=== PATIENT | female | born 1955 | race Caucasian/White ===

== ENCOUNTER 2017-02-18 20:35 | Emergency (ER) | payer OTHER ==
[2017-02-18 21:24] VITALS: RESP 16
[2017-02-18] MEDS ORDERED: HYDROcodone/APAP 5-325MG 1 EACH TAB PO STA (21:36)
--- NOTE | 2017-02-18 21:41 | ED ---
Fall HPI - General Chief Complaint: Fall Stated Complaint: fall on sidewalk Chin and both hands injured Time Seen by Provider: 02/18/17 21:26 Source: patient, RN notes reviewed Mode of arrival: ambulatory Limitations: no limitations - History of Present Illness Initial Comments: 62-year-old female presents emergency Department with chief complaint of trip and fall. She states she tripped over a sidewalk all forward. Patient primarily complains of right hand pain, bruising to her right hand. She states she also has mild left hand pain. Patient denies any headache, dizziness, blurred vision, loss conscious. She states she did abrasions her chin in her cheek. She states she has full range of motion of her jaw with no discomfort. She felt that she may have chipped a tooth but cannot identify tooth. Patient denies any lower extremity injuries. Patient states that she feels fine otherwise having pain. - Related Data Home Medications Medication Instructions Recorded Confirmed No Known Home Medications [No 02/18/17 02/18/17 Known Home Medications] Previous Rx's Medication Instructions Recorded Hydrocodone/Acetaminophen [[place] 1 tab PO Q6HR PRN #15 tab 02/18/17 5-325] Allergies Allergy/AdvReac Type Severity Reaction Status Date / Time perfume Allergy Swelling Verified 02/18/17 21:24 Review of Systems ROS Statement: Those systems with pertinent positive or pertinent negative responses have been documented in the HPI. ROS Other: All systems not noted in ROS Statement are negative. Past Medical History Additional Past Medical History / Comment(s): TMJ History of Any Multi-Drug Resistant Organisms: None Reported Past Surgical History: Cholecystectomy, Tonsillectomy Additional Past Surgical History / Comment(s): cyst removed left wrist Past Psychological History: No Psychological Hx Reported Smoking Status: Former smoker Past Alcohol Use History: Occasional Past Drug Use History: None Reported General Exam Limitations: no limitations General appearance: alert, in no apparent distress Head exam: Present: atraumatic, normocephalic, normal inspection Eye exam: Present: normal appearance, PERRL, EOMI. Absent: scleral icterus, conjunctival injection, periorbital swelling ENT exam: Present: normal exam, normal oropharynx (No dental fractures noted), mucous membranes moist, TM's normal bilaterally, normal external ear exam, other (Minimal tenderness the right maxillary region superficial abrasion noted to the right cheek, chin region patient has some ecchymosis noted to the chin though patient has full range of motion) Neck exam: Present: normal inspection, full ROM. Absent: tenderness, meningismus, lymphadenopathy Respiratory exam: Present: normal lung sounds bilaterally. Absent: respiratory distress, wheezes, rales, rhonchi, stridor Cardiovascular Exam: Present: regular rate, normal rhythm, normal heart sounds. Absent: systolic murmur, diastolic murmur, rubs, gallop, clicks Extremities exam: Present: other (There is moderate ecchymosis, swelling noted to the fourth and fifth digit of the right hand severe times with palpation there is an old deformity noted to the right wrist patient is nontender the wrist. Patient has mild tenderness over the left hand fifth digit radial pulses equal bilaterally Refill less than 2 seconds bilaterally) Back exam: Present: full ROM. Absent: tenderness Neurological exam: Present: alert, oriented X3, CN II-XII intact, reflexes normal. Absent: motor sensory deficit Skin exam: Present: warm, dry, intact, normal color. Absent: rash Course Vital Signs 02/18/17 21:19 Temperature 98.2 F Pulse Rate 81 Respiratory 16 Rate Blood Pressure 159/89 O2 Sat by Pulse 98 Oximetry Procedures - Orthopedic Splinting/Casting Injury #1 Side: right Upper Extremity Injury Location: hand, finger Upper Extremity Immobilizer: ulnar gutter (Short arm neurovascular intact before and after procedure) Medical Decision Making - Medical Decision Making 62-year-old female presented emergency department for fall. Patient has 2 finger fractures noted of the fourth and fifth digit on the right hand. This was splinted. She'll follow-up with orthopedics. Patient's has a facial duration contusion no fractures. Patient no evidence of manic head injury. Patient we discharged this time return parameters were discussed. Disposition Clinical Impression: Fall, Facial contusion, Facial abrasion, Multiple fractures of fingers, Hand contusion Disposition: HOME SELF-CARE Condition: Stable Instructions: Finger Fracture (ED) Additional Instructions: Please return to the Emergency Department if symptoms worsen or any other concerns. Prescriptions: Hydrocodone/Acetaminophen [[place] 5-325] 1 tab PO Q6HR PRN #15 tab PRN Reason: Pain Referrals: Flor Urbina MD [Primary Care Provider] - 1-2 days Magdaleno Gonzalez DO [Doctor of Osteopathic Medicine] - 1-2 days Time of Disposition: 22:15
--- NOTE | 2017-02-18 21:57 | XR ---
EXAMINATION TYPE: XR hand complete bilateral DATE OF EXAM: 02/18/2017 9:46 PM COMPARISON: NONE HISTORY: Fall with left hand pain. Left fifth digit pain TECHNIQUE: 3 radiographic views of the left hand were obtained. FINDINGS: There is no evidence of fracture or dislocation. Mild degenerative changes are appreciated of the distal interphalangeal joints demonstrated as sclerosis and joint space narrowing. Similar jeffery nges are mildly appreciated at the first metacarpophalangeal joint. IMPRESSION: No evidence of fracture or dislocation. Very mild degenerative changes.
--- NOTE | 2017-02-18 21:58 | XR ---
EXAMINATION TYPE: XR facial bones complete DATE OF EXAM: 02/18/2017 9:46 PM COMPARISON: NONE HISTORY: Injury during facial pain. TECHNIQUE: 3 radiographic views of the facial bones were obtained. FINDINGS: 3 mandibular screws are seen bilaterally from prior fixation. Additional dental filling wit h through canal is noted on the left within the mandibular molar. No evidence of fracture or dislocat ion is identified. Nasal septum appears intact. Orbits are also intact. Paranasal sinuses and mastoid air cells are well aerated. Mild degenerative changes are appreciated the visualized cervical spine. IMPRESSION: No evidence of fracture or dislocation. Prior postsurgical changes.
[2017-02-18 22:32] VITALS: BP 147/75; PULSE 69; TEMP 97.8
== END 2017-02-18 22:54 | disposition home or self-care (01) ==
LOC: EC 20:35
DX: S62.614A Displaced fracture of proximal phalanx of right ring finger, initial encounter for closed fracture (principal); S62.616A Displaced fracture of proximal phalanx of right little finger, initial encounter for closed fracture; S00.83XA Contusion of other part of head, initial encounter; Z87.891 Personal history of nicotine dependence; Z91.09 Other allergy status, other than to drugs and biological substances; W01.0XXA Fall on same level from slipping, tripping and stumbling without subsequent striking against object, initial encounter; Y92.89 Other specified places as the place of occurrence of the external cause
CPT/HCPCS: 29125; 70150; 99284

== ENCOUNTER → 2017-06-14 | Outpatient (CLI) | payer OTHER ==
--- NOTE | 2017-06-17 07:20 | MM ---
Reason for exam: screening (asymptomatic). Last mammogram was performed 1 year and 8 months ago. History: Patient is postmenopausal and had first child after 31. Family history of breast cancer in sister at age 44 and breast cancer in mother at age 50. Took hormonal contraceptives for 30 years. Physical Findings: A clinical breast exam by your physician is recommended on an annual basis and results should be correlated with mammographic findings. MG 3D Screening Mammo W/Cad Bilateral CC and MLO view(s) were taken. Prior study comparison: October 14, 2015, bilateral MG 3d diag mammo w/cad [facility]. March 05, 2014, left breast MG work up mamm w CAD LT. The breast tissue is heterogeneously dense. This may lower the sensitivity of mammography. There is no discrete abnormality. No significant changes when compared with prior studies. ASSESSMENT: Negative, BI-RAD 1 RECOMMENDATION: Routine screening mammogram of both breasts in 1 year.
== END | disposition home or self-care (01) ==
LOC: RADMAMWWP 07:59
PROVIDERS: ATTEND Obstetrics & Gynecology
DX: Z12.31 Encounter for screening mammogram for malignant neoplasm of breast (principal); Z80.3 Family history of malignant neoplasm of breast
CPT/HCPCS: 77063; G0202

== ENCOUNTER → 2018-06-27 | Outpatient (CLI) | payer OTHER ==
--- NOTE | 2018-06-30 11:24 | MM ---
Reason for exam: screening (asymptomatic). Last mammogram was performed 1 year ago. History: Patient is postmenopausal and had first child after 31. Family history of breast cancer in sister at age 44 and breast cancer in mother at age 50. Took hormonal contraceptives for 30 years. Physical Findings: A clinical breast exam by your physician is recommended on an annual basis and results should be correlated with mammographic findings. MG 3D Screening Mammo W/Cad Bilateral CC and MLO view(s) were taken. Technologist: RT Bladimir (R)(M) Prior study comparison: June 14, 2017, bilateral MG 3d screening mammo w/cad. October 14, 2015, bilateral MG 3d diag mammo w/cad [facility]. The breast tissue is heterogeneously dense. This may lower the sensitivity of mammography. Finding: There are typically benign calcifications in both breasts. No significant changes in finding since June 14, 2017 and October 14, 2015. ASSESSMENT: Benign, BI-RAD 2 RECOMMENDATION: Routine screening mammogram of both breasts in 1 year.
== END ==
LOC: RADMAMWWP 07:36
PROVIDERS: ATTEND Obstetrics & Gynecology
DX: Z12.31 Encounter for screening mammogram for malignant neoplasm of breast (principal); Z80.3 Family history of malignant neoplasm of breast
CPT/HCPCS: 77063; 77067

== ENCOUNTER → 2021-07-14 | Outpatient (CLI) | payer MEDICARE, OTHER ==
--- NOTE | 2021-07-18 11:11 | MM ---
Reason for exam: screening (asymptomatic). Last mammogram was performed 3 years and 1 month ago. History: Patient is postmenopausal and had first child after 31. Family history of breast cancer in sister at age 44 and breast cancer in mother at age 50. Took hormonal contraceptives for 30 years. Physical Findings: A clinical breast exam by your physician is recommended on an annual basis and results should be correlated with mammographic findings. MG 3D Screening Mammo W/Cad Bilateral CC and MLO view(s) were taken. Prior study comparison: June 27, 2018, bilateral MG 3d screening mammo w/cad. June 14, 2017, bilateral MG 3d screening mammo w/cad. The breast tissue is heterogeneously dense. This may lower the sensitivity of mammography. No significant changes when compared with prior studies. ASSESSMENT: Benign, BI-RAD 2 RECOMMENDATION: Routine screening mammogram of both breasts in 1 year.
== END | disposition home or self-care (01) ==
LOC: RADMAMWWP 07:55
PROVIDERS: ATTEND Internal Medicine
DX: Z12.31 Encounter for screening mammogram for malignant neoplasm of breast (principal); Z80.3 Family history of malignant neoplasm of breast
CPT/HCPCS: 77063; 77067

== ENCOUNTER → 2021-09-12 | Outpatient (CLI) | payer OTHER ==
--- NOTE | 2021-09-13 16:24 | BD ---
EXAMINATION TYPE: Axial Bone Density DATE OF EXAM: 09/12/2021 COMPARISON: NONE CLINICAL HISTORY: Height: 5 FT 2 IN Weight: 123 FRAX RISK QUESTIONS: Alcohol (3 or more units per day): NO Family History (Parent hip fracture): NO Glucocorticoids (More than 3mos): NO (Ex: prednisone, prednisolone, methylprednisolone, dexamethasone, and hydrocortisone). History of Fracture in Adulthood: YES Secondary Osteoporosis: 1. Type 1 Diabetes: NO 2. Hyperthyroidism: NO 3. Menopause before 45: YES 4. Malnutrition: NO 5. Chronic liver disease: NO Rheumatoid Arthritis: NO Current Tobacco Use: NO RISK FACTORS HISTORY OF: History of Wrist Fracture: RT WRIST When: 2012 Surgery to Spine/Hip(right/left)/Wrist (right/left): NO Family History of Osteoporosis: NO Active: YES Diet low in dairy products/other sources of calcium: NO Postmenopausal woman: YES Take estrogen and/or progesterone medications: NO Lost more than 2 inches in height since high school: NO Frequent falls: NO Poor Health: GOOD Hyperparathyroidism: NO Adrenal Insufficiency: NO MEDICATIONS: Additional Medications: SINGULAIR Additional History: EXAM MEASUREMENTS: Bone mineral densitometry was performed using the Velti System. Bone mineral density as measured about the Lumbar spine is: ----- L1-L4(G/cm2): 1.048 T Score Values are as follows: ----- L2: -1.1 ----- L3: -0.8 ----- L4: -1.2 ----- L1-L4: -1.1 Bone mineral density has: DECREASED -17.5 % SINCE STUDY OF 2003 Bone mineral density about the R hip (g/cm2): 0.768 Bone mineral density about the L hip (g/cm2): 0.760 T Score values are as follows: -----R Neck: -1.9 -----L Neck: -2.0 -----R Total: -1.8 -----L Total: -1.9 Bone mineral density has: DECREASED -18.3 % SINCE STUDY 2003 IMPRESSION: Osteopenia (T Score between -2.5 and -1). There is slightly increased risk of fracture and the patient may be considered for treatment. Re-Screen 2-5 years. NOTE: T-SCORE=SD OF THE YOUNG ADULT MEAN.
== END | disposition home or self-care (01) ==
LOC: RADBDWWP 15:59
PROVIDERS: ATTEND Internal Medicine
DX: M85.89 Other specified disorders of bone density and structure, multiple sites (principal)
CPT/HCPCS: 77080

== ENCOUNTER → 2022-07-23 | Outpatient (CLI) | payer MEDICARE ==
--- NOTE | 2022-07-24 18:46 | MM ---
Reason for Exam: Screening (asymptomatic). Last screening mammogram was performed 12 month(s) ago. Patient History: Menarche at age 12. Postmenopausal. Patient used Hormonal Contraceptives for 30 years. Sister had breast cancer, age 44. Mother had breast cancer, age 50. Risk Values: Judy 5 year model risk: 8.7%. NCI Lifetime model risk: 27.8%. Prior Study Comparison: 06/14/2017 Bilateral Screening Mammogram, [facility]. 06/27/2018 Bilateral Screening Mammogram, [facility]. 07/14/2021 Bilateral Screening Mammogram, [facility]. Tissue Density: The breast tissue is heterogeneously dense. This may lower the sensitivity of mammography. Findings: Analyzed By CAD. Focal asymmetry central outer left breast is more defined from prior exams. This may represent superimposition shadow but further evaluation is recommended. The patient also has a concern about skin wrinkling around the lateral aspect of the left areola. Patient does not feel any lump. Further evaluation is recommended. Overall Assessment: Incomplete: need additional imaging evaluation, BI-RAD 0 Management: Special View Mammogram of the left breast. Diagnostic Breast Ultrasound of the left breast. 1. Additional views including spot 3-D CC, 3-D CC rolled medial, spot 3-D MLO, and 3-D ML views. 2. Whole left breast ultrasound. 3. Clinical inspection of the patient's area of concern, wrinkling along the left lateral periareolar region. [facility] will attempt to contact patient to return for supplemental views and ultrasound if indicated. Electronically signed and approved by: Juan Michael M.D. Radiologist
== END | disposition home or self-care (01) ==
LOC: RADMAMWWP 15:15
PROVIDERS: ATTEND Internal Medicine
DX: Z12.31 Encounter for screening mammogram for malignant neoplasm of breast (principal); Z78.0 Asymptomatic menopausal state; Z80.3 Family history of malignant neoplasm of breast
CPT/HCPCS: 77063; 77067

== ENCOUNTER → 2022-07-27 | Outpatient (CLI) | payer MEDICARE ==
--- NOTE | 2022-07-27 08:27 | MM ---
Reason for Exam: Additional evaluation requested from abnormal screening. Last screening mammogram was performed less than 1 month ago. Patient History: Menarche at age 12. Postmenopausal. Patient used Hormonal Contraceptives for 30 years. Sister had breast cancer, age 44. Mother had breast cancer, age 50. Risk Values: Judy 5 year model risk: 8.7%. NCI Lifetime model risk: 27.8%. Prior Study Comparison: 03/05/2014 Left Diagnostic Mammogram, [facility]. 10/14/2015 Bilateral Diagnostic Mammogram, [facility]. 06/14/2017 Bilateral Screening Mammogram, [facility]. 06/27/2018 Bilateral Screening Mammogram, [facility]. 07/14/2021 Bilateral Screening Mammogram, [facility]. 07/23/2022 Bilateral MG 3D screening mammo w/cad, [facility]. Tissue Density: Left: The breast tissue is heterogeneously dense. This may lower the sensitivity of mammography. Findings: Analyzed By CAD. Area on prior mammogram within the left breast middle depth slightly lateral compresses out, no masses distortions or calcifications. Overall Assessment: Negative, BI-RAD 1 Management: Screening Mammogram of both breasts in 1 year. A clinical breast exam by your physician is recommended on an annual basis and results should be correlated with mammographic findings. This exam should not preclude additional follow-up of suspicious palpable abnormalities. Results were given to the patient verbally at the time of exam. Electronically signed and approved by: Clarence Nelson DO
== END | disposition home or self-care (01) ==
LOC: RADMAMWWP 07:30
PROVIDERS: ATTEND Internal Medicine
DX: R92.8 Other abnormal and inconclusive findings on diagnostic imaging of breast (principal); Z78.0 Asymptomatic menopausal state; Z80.3 Family history of malignant neoplasm of breast
CPT/HCPCS: 77065; G0279; 77061

== ENCOUNTER → 2022-08-02 | Outpatient (CLI) | payer MEDICARE ==
--- NOTE | 2022-08-02 11:08 | XR ---
Left knee HISTORY: Trauma and pain 3 views the left knee Bone mineralization, joint spaces and alignment are maintained. Suprapatellar increased density may b e indicative of small joint effusion. IMPRESSION: No fracture or dislocation. Joint effusion, knee MRI may be of benefit.
== END | disposition home or self-care (01) ==
LOC: RADXRMAIN 09:20
PROVIDERS: ATTEND Internal Medicine
DX: S89.92XA Unspecified injury of left lower leg, initial encounter (principal); M25.462 Effusion, left knee

== ENCOUNTER → 2022-09-05 | Outpatient (CLI) | payer MEDICARE ==
--- NOTE | 2022-09-05 16:19 | MR ---
EXAMINATION TYPE: MR knee LT wo con DATE OF EXAM: 09/05/2022 COMPARISON: Left knee x-ray August 02, 2022 HISTORY: Sprain L knee with outer pain and locking for 6 to 8 weeks. TECHNIQUE: Multiplanar, multisequence images of the knee is performed without IV contrast. FINDINGS: MEDIAL MENISCUS: Some increased signal posterior horn does not definitively extend to articular surfa ce. LATERAL MENISCUS: Anterior and posterior horns are intact without tear. CRUCIATE LIGAMENTS: The anterior and posterior cruciate ligaments are intact and unremarkable. COLLATERAL LIGAMENTS: The medial collateral ligament and lateral collateral ligament complex are inta ct and unremarkable. EXTENSOR MECHANISM: Visualized quadriceps and patellar tendons are intact. EFFUSION: No significant suprapatellar joint effusion. POPLITEAL CYST: Small size popliteal/spear cyst. TRICOMPARTMENT SPACES: Mild to moderate tricompartment joint space loss. No significant spurring. CARTILAGE: Tricompartmental articular cartilage is preserved. BONE MARROW SIGNAL: There is a fairly large area of heterogeneous increased T2 signal in the lateral tibial plateau extending to the tibial condyles measuring approximately 3.5 cm transversely by 4.5 cm craniocaudal dimension. This is greatest near the lateral articulating surface. No bony destruction or serpiginous diminished T1 signal. This extends the length of bone AP diameter on sagittal images. OTHER: No additional significant abnormality is appreciated. IMPRESSION: 1. Significant focal osseous contusion and/or microfracture injury involving the lateral tibial plate au as detailed above. 2. Intrasubstance tear posterior horn medial meniscus thought present. No full-thickness meniscal tea r. 3. Mild to moderate tricompartment degenerative changes as detailed above. 4. Small sized popliteal cyst.
== END | disposition home or self-care (01) ==
LOC: RADMRIMAIN 08:01
PROVIDERS: ATTEND Internal Medicine
DX: M17.12 Unilateral primary osteoarthritis, left knee (principal); M71.21 Synovial cyst of popliteal space [Baker], right knee

== ENCOUNTER → 2023-06-06 | Outpatient (CLI) | payer MEDICARE ==
--- NOTE | 2023-06-06 13:30 | XR ---
EXAM TYPE: LUMBAR SPINE X RAY SERIES COMPARISON: NONE HISTORY: Pain TECHNIQUE: 3 views are submitted. FINDINGS: Alignment is anatomic. The pedicles are intact. The transverse processes are intact. There is no spondylolisthesis. Surgical clips in the right upper quadrant. There is mild to moderate hypertrophi c and degenerative changes of the spine most marked at L5-S1. There is facet arthropathy. Mild superi or endplate compression fracture of indeterminate age but likely chronic. IMPRESSION: 1. Mild diffuse osteopenia with multilevel [id number] degenerative disc disease and facet arthr opathy most marked at L5-S1 with suspected foraminal encroachment. 2. Age indeterminate mild superior endplate compression fracture T12, likely chronic. Correlate clini marge.
== END | disposition home or self-care (01) ==
LOC: RADXRMAIN 13:12
PROVIDERS: ATTEND Internal Medicine
DX: M51.36 Other intervertebral disc degeneration, lumbar region (principal); M47.816 Spondylosis without myelopathy or radiculopathy, lumbar region
CPT/HCPCS: 72100

== ENCOUNTER → 2023-06-13 | Outpatient (CLI) | payer MEDICARE ==
[2023-06-13 15:39] LABS: African American GFR (CKD) >90 (>60 ml/min/1.73 sqM); Blood Urea Nitrogen 20 mg/dL (7-17); Non-African American GFR(CKD) 80 (>60 ml/min/1.73 sqM)
--- NOTE | 2023-06-14 08:08 | CT ---
EXAMINATION TYPE: CT abdomen pelvis w con CT DLP: 403 mGycm, Automated exposure control for dose reduction was used. DATE OF EXAM: 06/13/2023 4:45 PM COMPARISON: None CLINICAL INDICATION:Female, 68 years old with history of M47.816 OTH DISRD OF BONE DENSITY AND STRM7 9.671; Stomach pain and weight loss greater than 10 pounds in the last 5 months. TECHNIQUE: Axial CT of the abdomen and pelvis. Sagittal and coronal reformats were created on a Puddle workstation. Contrast used:100cc mL of Isovue 300 with IV Contrast, (none if empty) Oral contrast used: with Oral Contrast (none if empty) FINDINGS: LOWER CHEST: Unremarkable ABDOMEN LIVER: Left hepatic lobe 40 mm simple cyst. GALLBLADDER AND BILE DUCTS: The gallbladder is surgically absent. PANCREAS: Unremarkable. SPLEEN: Unremarkable. ADRENAL GLANDS: Indeterminate right adrenal nodule measuring 14 mm. Left adrenal glands are unremarka ble. KIDNEYS AND URETERS: No evidence of hydronephrosis or renal calculus. The ureters are unremarkable. PELVIS BLADDER: Unremarkable REPRODUCTIVE: Large left pelvic sidewall mass which could be an ovarian cyst measuring 8.4 x 5.1 cm ABDOMEN & PELVIS STOMACH AND BOWEL: No evidence of bowel obstruction. PERITONEUM/RETROPERITONEUM: No evidence of pneumoperitoneum or free fluid. VASCULATURE: No evidence of aortic aneurysm. MUSCULOSKELETAL: No acute osseous abnormalities LYMPH NODES: No gross evidence for lymphadenopathy. SOFT TISSUE/ABDOMINAL WALL: Unremarkable IMPRESSION: 1. No evidence for acute abdominal process. 2. There is a left pelvic sidewall lesion simple fluid density probably representing an ovarian cyst s measuring up to 8.4 x 5.1 cm. Further evaluation pelvic ultrasound is recommended. 3. Indeterminate right adrenal nodule measuring 14 mm. Consider adrenal mass protocol for further ev aluation. 4. No evidence for lymphadenopathy.
== END | disposition home or self-care (01) ==
LOC: RADCTMAIN 14:43
PROVIDERS: ATTEND Internal Medicine
DX: M47.816 Spondylosis without myelopathy or radiculopathy, lumbar region (principal); M85.851 Other specified disorders of bone density and structure, right thigh; D35.01 Benign neoplasm of right adrenal gland; K76.89 Other specified diseases of liver; M79.671 Pain in right foot; R63.4 Abnormal weight loss; R10.9 Unspecified abdominal pain
CPT/HCPCS: 82565; 84520; 74177; 36415; Q9967

== ENCOUNTER → 2023-06-19 | Outpatient (CLI) | payer MEDICARE ==
--- NOTE | 2023-06-19 16:51 | US ---
EXAMINATION TYPE: US pelvic complete DATE OF EXAM: 06/19/2023 COMPARISON: NONE CLINICAL INDICATION: Female, 68 years old with history of N83.209 UNSPECIFIED OVARIAN CYST, UNSPECIFI ED SIDE; Lt ovarian cyst [address] TECHNIQUE: Transabdominal (TA). Transabdominal sonographic images of the pelvis were acquired. Date of LMP: post pita 10 yrs EXAM MEASUREMENTS: Uterus: 6.6x3.0x3.8cm Endometrial Stripe: 4.0cm Right Ovary: 2.6x2.1x1.8cm Left Ovary: 2.5x1.3x0.6 1. Uterus: Anteverted wnl 2. Endometrium: wnl 3. Right Ovary: wnl 4. Left Ovary: cystic area extending from ovary measures 7.8x4.8x5.8cm, slightly smaller than on CT 5. Bilateral Adnexa: wnl 6. Posterior cul-de-sac: wnl IMPRESSION: 1. Large cyst left ovary.
== END | disposition home or self-care (01) ==
LOC: RADUSWWP 12:16
PROVIDERS: ATTEND Internal Medicine
DX: N83.202 Unspecified ovarian cyst, left side (principal)
CPT/HCPCS: 76856

== ENCOUNTER → 2023-08-01 | Outpatient (CLI) | payer MEDICARE ==
--- NOTE | 2023-08-01 11:34 | MM ---
Reason for Exam: Screening (asymptomatic). Last screening mammogram was performed 12 month(s) ago. Patient History: Menarche at age 12. Patient has no children. Postmenopausal. Patient used Hormonal Contraceptives for 30 years. Sister had breast cancer, age 44. Mother had breast cancer, age 50. Risk Values: Judy 5 year model risk: 6.4%. NCI Lifetime model risk: 20.4%. Prior Study Comparison: 10/14/2015 Bilateral Diagnostic Mammogram, [facility]. 06/14/2017 Bilateral Screening Mammogram, [facility]. 06/27/2018 Bilateral Screening Mammogram, [facility]. 07/14/2021 Bilateral Screening Mammogram, [facility]. 07/23/2022 Bilateral MG 3D screening mammo w/cad, [facility]. 07/27/2022 Left MG 3D work up w/cad , [facility]. Tissue Density: The breast tissue is heterogeneously dense. This may lower the sensitivity of mammography. Findings: Analyzed By CAD. Focal asymmetry right breast 3.4 cm nipple and MLO view superior aspect measuring 6 mm Left breast No evidence for suspicious mass, constipation or distortion. Focal asymmetry right breast 3.4 cm nipple anterior depth on MLO view superior aspect measuring 6 mm . Left breast No evidence for suspicious mass, constipation or distortion. Overall Assessment: Incomplete: need additional imaging evaluation, BI-RAD 0 Management: Diagnostic Mammogram of the right breast. [facility] will attempt to contact patient to return for supplemental views and ultrasound if indicated. Patient should continue monthly self-breast exams. A clinical breast exam by your physician is recommended on an annual basis. This exam should not preclude additional follow-up of suspicious palpable abnormalities. Note on Judy scores and lifetime risk: 1. A Judy score greater than 3% is considered moderate risk. If this is the case, consider specialist referral to assess eligibility for a risk reducing agent. 2. If overall lifetime risk for the development of breast cancer is 20% or higher, the patient may qualify for future screening with alternating mammogram and breast MRI. Electronically signed and approved by: Clarence Nelson DO
== END | disposition home or self-care (01) ==
LOC: RADMAMWWP 10:09
PROVIDERS: ATTEND Internal Medicine
DX: Z12.31 Encounter for screening mammogram for malignant neoplasm of breast (principal); Z78.0 Asymptomatic menopausal state; Z80.3 Family history of malignant neoplasm of breast
CPT/HCPCS: 77063; 77067

== ENCOUNTER → 2023-08-07 | Outpatient (CLI) | payer MEDICARE ==
--- NOTE | 2023-08-07 14:10 | MM ---
Reason for Exam: Additional evaluation requested from abnormal screening. Last screening mammogram was performed less than 1 month ago. Patient History: Menarche at age 12. Patient has no children. Postmenopausal. Patient used Hormonal Contraceptives for 30 years. Sister had breast cancer, age 44. Mother had breast cancer, age 50. Risk Values: Judy 5 year model risk: 6.4%. NCI Lifetime model risk: 20.4%. Prior Study Comparison: 08/24/2011 Bilateral Screening Mammogram, [facility]. 02/19/2014 Bilateral Screening Mammogram, [facility]. 03/05/2014 Left Diagnostic Mammogram, [facility]. 10/14/2015 Bilateral Diagnostic Mammogram, [facility]. 06/14/2017 Bilateral Screening Mammogram, [facility]. 06/27/2018 Bilateral Screening Mammogram, [facility]. 07/14/2021 Bilateral Screening Mammogram, [facility]. 07/23/2022 Bilateral MG 3D screening mammo w/cad, [facility]. 07/27/2022 Left MG 3D work up w/cad , [facility]. 08/01/2023 Bilateral MG 3D screening mammo w/cad, [facility]. Tissue Density: Right: The breast tissue is heterogeneously dense. This may lower the sensitivity of mammography. Findings: Analyzed By CAD. Asymmetry on the MLO view does not persist with compression. No new suspicious mass. Benign round calcifications noted. Overall Assessment: Benign, BI-RAD 2 Management: Screening Mammogram of both breasts in 1 year. A clinical breast exam by your physician is recommended on an annual basis and results should be correlated with mammographic findings. This exam should not preclude additional follow-up of suspicious palpable abnormalities. Results were given to the patient verbally at the time of exam. Note on Judy scores and lifetime risk: 1. A Judy score greater than 3% is considered moderate risk. If this is the case, consider specialist referral to assess eligibility for a risk reducing agent. If overall lifetime risk for the development of breast cancer is 20% or higher, the patient may qualify for future screening with alternating mammogram and breast MRI. Electronically signed and approved by: Leeroy Morales D.O.
== END | disposition home or self-care (01) ==
LOC: RADMAMWWP 13:38
PROVIDERS: ATTEND Internal Medicine
DX: R92.331 Mammographic heterogeneous density, right breast (principal); Z78.0 Asymptomatic menopausal state; Z80.3 Family history of malignant neoplasm of breast
CPT/HCPCS: 77065; G0279; 77061

== ENCOUNTER → 2023-09-19 | Outpatient (CLI) | payer MEDICARE ==
--- NOTE | 2023-09-19 11:16 | BD ---
EXAMINATION TYPE: Axial Bone Density DATE OF EXAM: 09/19/2023 CLINICAL HISTORY: 68 years old Female. ICD-10 CODE: M85.851 OTH DISRD OF BONE DENSITY AND STRUCTURE, R Height: Weight: FRAX RISK QUESTIONS: Glucocorticoids (More than 3mos): yes (Ex: prednisone, prednisolone, methylprednisolone, dexamethasone, and hydrocortisone). History of Fracture in Adulthood: yes Secondary Osteoporosis: yes 3. Menopause before 45: yes RISK FACTORS HISTORY OF: hx of rt hand fx 2 yrs ago History of Wrist Fracture: yes, right, 2013 Diet low in dairy products/other sources of calcium: yes Postmenopausal woman: yes <46 Lost more than 2 inches in height since high school: yes Hyperparathyroidism: no Adrenal Insufficiency: no MEDICATIONS: Prednisone or other steroids: yes, asthma meds for yrs Osteoporosis Medications: yes, fosamax, for about 2 yrs Additional Medications: cholesterol meds, reflux meds, calcium, Additional History: recent total hyst., cholesterol, occ. reflux, allergies/asthma EXAM MEASUREMENTS: Bone mineral densitometry was performed using the [employer] System. Bone mineral density as measured about the Lumbar spine is: ----- L1-L4(G/cm2): 1.122 T Score Values are as follows: ----- L1: -1.0 ----- L2: -0.7 ----- L3: -0.1 ----- L4: -0.4 ----- L1-L4: -0.4 Z Score Values are as follows: ----- L1: 1.1 ----- L2: 1.4 ----- L3: 2.1 ----- L4: 1.7 ----- L1-L4: 1. Bone mineral density has: Increased 7.1% since study of: 09.12.2021 Bone mineral density about the R hip (g/cm2): 0.821 Bone mineral density about the L hip (g/cm2): 0.834 T Score values are as follows: -----R Neck: -1.4 -----L Neck: -1.6 -----R Total: -1.5 -----L Total: -1.4 Z Score values are as follows: -----R Neck: 0.5 -----L Neck: 0.3 -----R Total: 0.2 -----L Total: 0.3 Bone mineral density has: Increased 7.1% since study of: 09.12.2020 FRAX%s: The graph provided illustrates a 21.6% chance for a major osteoporotic fx and a 3.5% chance f or the hips probability for fx in 10 years time. IMPRESSION: Osteopenia (T Score between -2.5 and -1). There is slightly increased risk of fracture and the patient may be considered for treatment. Re-Screen 2-5 years. NOTE: T-SCORE=SD OF THE YOUNG ADULT MEAN.
== END | disposition home or self-care (01) ==
LOC: RADBDWWP 09:57
PROVIDERS: ATTEND Internal Medicine
DX: M85.89 Other specified disorders of bone density and structure, multiple sites (principal); Z78.0 Asymptomatic menopausal state
CPT/HCPCS: 77080

== ENCOUNTER → 2024-01-30 | Outpatient (CLI) | payer MEDICARE ==
--- NOTE | 2024-01-30 10:26 | US ---
EXAMINATION TYPE: US liver DATE OF EXAM: 01/30/2024 COMPARISON: CT abdomen pelvis dated 06/13/2023 CLINICAL INDICATION: Female, 69 years old with history of K76.89 OTHER SPECIFIED DISEASES OF LIVER; H x Liver Cyst; New onset nausea with diarrhea TECHNIQUE: Multiple sonographic images of the right upper quadrant are obtained. FINDINGS: EXAM MEASUREMENTS: Liver Length: 13.0 cm Gallbladder Wall: NA cm CBD: 0.5 cm Right Kidney: 10.2 x 5.4 x 5.3 cm GENERAL FORECASTER NOTES: Pancreas: wnl Liver: Simple cyst redemonstrated = 3.1 x 2.7 x 4.2 Gallbladder: Surgically absent Evidence for sonographic Camara's sign: No CBD: wnl Right Kidney: wnl IMPRESSION: 1. 4.2 cm simple cyst of the left lobe of the liver stable compared to prior CT abdomen and pelvis da maris 06/13/2023 2. Status post cholecystectomy. 3. No new abnormality seen.
== END | disposition home or self-care (01) ==
LOC: RADUSWWP 07:40
PROVIDERS: ATTEND Internal Medicine
DX: K76.89 Other specified diseases of liver (principal); R11.0 Nausea; R19.7 Diarrhea, unspecified; Z90.49 Acquired absence of other specified parts of digestive tract
CPT/HCPCS: 76705

== ENCOUNTER 2024-05-13 08:15 | Day surgery (SDC) | payer MEDICARE ==
[~2024-05-13 08:15] MED LIST: LACTATED RINGERS 1,000 ML BAG ONE; LIDOCAINE 1% INJ 10MG/ML (20 ML MDV) ONE; PROPOFOL 10 MG/ML 20 ML VIAL IV ONE
--- NOTE | 2024-06-05 11:34 | P.PCN ---
Date of Procedure: 05/13/24 Procedure(s) Performed: This is an addendum to the procedure was performed on 05/13/2024 Procedure performed EGD with biopsy Colonoscopy with biopsy Procedure: Initially upper endoscopy was performed. Upper endoscopy was introduced into the mouth and esophagus intubated without any difficulty and was measured advanced into the stomach and duodenum and carefully examined. There was mild gastritis noted and biopsies were done from this area. Also biopsies were done from the duodenum to rule out celiac disease. Colonoscopy was then performed. The scope was advanced into the cecum. There was 6 mm ascending colon polyp that was removed by snare polypectomy. Another 4 mm polyp noted in the transverse colon that was removed by snare polypectomy and scattered sigmoid diverticulosis seen.
== END 2024-05-13 08:40 | disposition home or self-care (01) ==
LOC: ORWHC2ENDO 08:15
PROVIDERS: ATTEND Internal Medicine Gastroenterology
DX: K29.50 Unspecified chronic gastritis without bleeding (principal); D12.4 Benign neoplasm of descending colon; D12.3 Benign neoplasm of transverse colon; K57.30 Diverticulosis of large intestine without perforation or abscess without bleeding; E78.5 Hyperlipidemia, unspecified; Z79.899 Other long term (current) drug therapy
CPT/HCPCS: 43239; 45380; 45385; 88305

== ENCOUNTER → 2024-09-01 | Outpatient (CLI) | payer MEDICARE ==
[2024-09-01 12:15] LABS: African American GFR (CKD) >90 (>60 ml/min/1.73 sqM); Blood Urea Nitrogen 15 mg/dL (7-17); Non-African American GFR(CKD) 88 (>60 ml/min/1.73 sqM)
--- NOTE | 2024-09-01 14:50 | US ---
EXAMINATION TYPE: US carotid duplex BILAT DATE OF EXAM: 09/01/2024 COMPARISON: 07/27/2013 CLINICAL INDICATION: Female, 69 years old with history of [id number] CAROTID STENOSIS, VINAYAK; Stenosis Additional History: .... TECHNIQUE: Grayscale, color Doppler and spectral Doppler evaluation of the bilateral carotid systems and vertebral arteries. Indirect Doppler criteria was utilized. FINDINGS: EXAM MEASUREMENTS: RIGHT: Peak Systolic Velocity (PSV) cm/sec ----- Right CCA: 63.8 ----- Right ICA: 106.9 ----- Right ECA: 57.2 ICA/CCA ratio: 1.7 RIGHT: End Diastole cm/sec ----- Right CCA: 16.8 ----- Right ICA: 38.3 ----- Right ECA: 0.0 LEFT: Peak Systolic Velocity (PSV) cm/sec ----- Left CCA: 86.4 ----- Left ICA: 113.4 ----- Left ECA: 55.2 ICA/CCA ratio: 1.3 LEFT: End Diastole cm/sec ----- Left CCA: 20.4 ----- Left ICA: 38.3 ----- Left ECA: 0.0 VERTEBRALS (direction of flow): Right Vertebral: Antegrade Left Vertebral: Antegrade Rhythm: Normal DISTRICT ATTORNEY NOTES: No significant stenosis seen Color Doppler imaging shows patency with blood flow throughout the carotid artery. Spectral waveforms are within normal limits. IMPRESSION: Right: No hemodynamically significant stenosis. Left: No hemodynamically significant stenosis. Criteria for Assigning % of Stenosis / Diameter reduction (Estimation based on the indirect measurements of the internal carotid artery velocities (ICA PSV). 1. Normal (no stenosis)=ICA PSV < 125 cm/s: ratio < 2.0: ICA EDV<40 cm/s. 2. Less than 50% stenosis=ICA PSV < 125 cm/s: ratio < 2.0: ICA EDV<40 cm/s. 3. 50 to 69% stenosis=ICA PSV of 125 to 230 cm/s: ration 2.0 ? 4.0: ICA EDV 40-100 cm/s. 4. Greater than 70% stenosis to near occlusion= ICA PSV > 230 cm/s: ratio > 4.0: ICA EDV > 100 cm/s. 5. Near occlusion= ICA PSV velocities may be low or undetectable: variable ratio and ICA EDV. 6. Total occlusion=unable to detect flow. [facility], , 09/01/2024 2:48 PM
--- NOTE | 2024-09-01 16:25 | CT ---
EXAMINATION TYPE: CT ChestAbdPelvis w con CT DLP: 483.3 mGycm, Automated exposure control for dose reduction was used. DATE OF EXAM: 09/01/2024 1:20 PM COMPARISON: Chest radiograph 07/22/2023, CT abdomen and pelvis 06/13/2023 CLINICAL INDICATION:Female, 69 years old with history of R63.4 ABNORMAL WEIGHT LOSS; PHH, abnormal we ight loss Technique: Multiple axial images of the chest, abdomen, and pelvis were obtained following the intrav enous administration of 100 mL Isovue-300. Oral contrast was administered. Two-dimensional coronal an d sagittal reconstructions were obtained. Findings: CHEST: LUNGS/ PLEURA: No pleural effusion, pneumothorax, or focal consolidation. No suspicious pulmonary nod ule or mass. AIRWAY: Patent and unremarkable.. HEART: Mild cardiomegaly.No pericardial effusion. MEDIASTINUM: No evidence of adenopathy. VASCULATURE: No aortic aneurysm. MUSCULOSKELETAL: No acute osseous abnormalities. Stable superior endplate compression deformity invol ving the T12 vertebral body with approximately 5% height loss centrally. Approximately 1 mm retropuls ion. SOFT TISSUES/LYMPH NODES: Unremarkable. LOWER NECK: No significant findings. ABDOMEN: ABDOMEN LIVER: Stable left hepatic lobe 3.5 cm simple cyst. Noncirrhotic morphology. No other suspicious lesi ons. GALLBLADDER AND BILE DUCTS: The gallbladder is surgically absent. No biliary duct dilatation. PANCREAS: Unremarkable. SPLEEN: Unremarkable. ADRENAL GLANDS: Unremarkable. KIDNEYS AND URETERS: No evidence of hydronephrosis or renal calculus. The kidneys enhance symmetrical ly. Contrast is demonstrated within both collecting systems on the delayed phase. PELVIS BLADDER: Incompletely distended but grossly unremarkable. REPRODUCTIVE: The uterus is surgically absent. ABDOMEN & PELVIS STOMACH AND BOWEL: Stomach and duodenum are unremarkable. Enteric contrast reaches the ascending colo n. No focal bowel wall thickening or surrounding inflammatory changes. Mild amount of stool is presen t throughout the colon which limits evaluation. No evidence of bowel obstruction. PERITONEUM: No evidence of pneumoperitoneum or free fluid. VASCULATURE: No evidence of aortic aneurysm. MUSCULOSKELETAL: No acute osseous abnormalities LYMPH NODES: No evidence for lymphadenopathy. SOFT TISSUE/ABDOMINAL WALL: Unremarkable IMPRESSION: No significant CT findings to explain the patient's symptomology within the chest, abdomen or pelvis. [facility], , 09/01/2024 4:22 PM
--- NOTE | 2024-09-02 07:18 | CA ---
Transthoracic Echo Report Name: Megha Rod Age: 69 Gender: F : 1955 Exam Date: 09/01/2024 13:35 Exam Location: [place] [facility] Ht (in): 62 Wt (lb): 107 Ordering Physician: Flor Urbina MD Attending/Referring Phys: Lease Administration Analyst Justine Dan RDCS Procedure CPT: Indications: I34.0 NONARIT MILRAL VALVE Cardiac Hx: Technical Quality: Good Contrast 1: Total Dose (mL): Contrast 2: Total Dose (mL): MEASUREMENTS (Male / Female) Normal Values 2D ECHO LV Diastolic Diameter PLAX 4.4 cm 4.2 - 5.9 / 3.9 - 5.3 cm LV Systolic Diameter PLAX 3.1 cm IVS Diastolic Thickness 0.8 cm 0.6 - 1.0 / 0.6 - 0.9 cm LVPW Diastolic Thickness 0.8 cm 0.6 - 1.0 / 0.6 - 0.9 cm LV Relative Wall Thickness 0.4 LVOT Diameter 2.1 cm Aortic Root Diameter 3.4 cm LV Diastolic Volume MOD BP 93.7 cm??? 67 - 155 / 56 - 104 cm??? LV Systolic Volume MOD BP 38.3 cm??? 22 - 58 / 19 - 49 cm??? LV Ejection Fraction MOD BP 59.1 % >= 55 % LV Cardiac Index MOD BP 1981.9 cm???/min???m??? LV Diastolic Volume MOD 4C 88.1 cm??? LV Systolic Volume MOD 4C 35.0 cm??? LV Ejection Fraction MOD 4C 60.3 % LV Cardiac Index MOD 4C 1899.1 cm???/min???m??? LV Diastolic Length 4C 8.1 cm LV Systolic Length 4C 6.4 cm LV Diastolic Volume MOD 2C 88.6 cm??? LV Systolic Volume MOD 2C 39.0 cm??? LV Ejection Fraction MOD 2C 56.0 % LV Cardiac Index MOD 2C 1773.3 cm???/min???m??? LV Diastolic Length 2C 7.2 cm LV Systolic Length 2C 6.0 cm LA Volume 45.9 cm??? 18 - 58 / 22 - 52 cm??? LA Volume Index 31.6 cm???/m??? 16 - 28 cm???/m??? Ascending Aorta Diameter 3.3 cm DOPPLER AV Peak Velocity 126.6 cm/s AV Peak Gradient 6.4 mmHg AV Mean Velocity 88.2 cm/s AV Mean Gradient 3.4 mmHg AV Velocity Time Integral 31.9 cm LVOT Peak Velocity 82.3 cm/s LVOT Peak Gradient 2.7 mmHg LVOT Velocity Time Integral 20.4 cm LVOT Stroke Volume 70.8 cm??? LVOT Stroke Volume Index 48.4 ml/m??? LVOT Cardiac Index 2533.1 cm???/min???m??? AV Area Cont Eq vti 2.2 cm??? AV Area Cont Eq pk 2.3 cm??? MV Area PHT 3.3 cm??? Mitral E Point Velocity 58.8 cm/s Mitral A Point Velocity 52.1 cm/s Mitral E to A Ratio 1.1 MV Deceleration Time 228.8 ms TR Peak Velocity 236.6 cm/s TR Peak Gradient 22.4 mmHg Right Atrial Pressure 5.0 mmHg Pulmonary Artery Systolic Pressu 27.4 mmHg Right Ventricular Systolic Press 27.4 mmHg PV Peak Velocity 82.7 cm/s PV Peak Gradient 2.7 mmHg FINDINGS Left Ventricle Left ventricular ejection fraction is estimated at 55-60 %. Left ventricular cavity size normal. Left ventricular wall thickness normal. No obvious regional wall motion abnormalities. Right Ventricle Normal right ventricular size and function. Right ventricular systolic pressure within normal limits. Right Atrium Normal right atrial size. Left Atrium Mildly increased left atrial volume. Mitral Valve Structurally normal mitral valve. No evidence for mitral valve prolapse. No mitral stenosis. Mild mitral regurgitation. Aortic Valve Trileaflet aortic valve. No aortic stenosis. Trace aortic regurgitation. Tricuspid Valve Structurally normal tricuspid valve. No tricuspid stenosis. Mild tricuspid regurgitation. Pulmonic Valve Structurally normal pulmonic valve. No pulmonic stenosis. No pulmonic regurgitation. Pericardium No pericardial effusion. Aorta Normal size aortic root and proximal ascending aorta. CONCLUSIONS 1. Normal left ventricular size and systolic function 2. Mild mitral and tricuspid regurgitation Previewed by: Dr. Mack Conroy MD (Electronically Signed) Final Date: 02 September 2024 07:16
== END | disposition home or self-care (01) ==
LOC: RADCTMAIN 11:00
PROVIDERS: ATTEND Internal Medicine
DX: I34.0 Nonrheumatic mitral (valve) insufficiency (principal); I65.23 Occlusion and stenosis of bilateral carotid arteries; R63.4 Abnormal weight loss
CPT/HCPCS: 93306; 82565; 84520; 93880; 71260; 74177; 36415; Q9967

== ENCOUNTER → 2024-10-14 | Outpatient (CLI) | payer MEDICARE ==
--- NOTE | 2024-10-14 14:14 | MM ---
Reason for Exam: Screening (asymptomatic). Last mammogram was performed 1 year(s) and 3 month(s) ago. Patient History: Menarche at age 12. Patient has no children. Left ovary removed at age 68. Right ovary removed at age 68. Hysterectomy at age 68. Postmenopausal. Patient used Hormonal Contraceptives for 30 years. Sister had breast cancer, age 44. Mother had breast cancer, age 50. Sister tested for BRCA1 outcome was positive. Risk Values: Judy 5 year model risk: 6.4%. NCI Lifetime model risk: 19.6%. Prior Study Comparison: 07/27/2022 Left MG 3D work up w/cad LT, [facility]. 08/01/2023 Bilateral MG 3D screening mammo w/cad, [facility]. 08/07/2023 Right MG 3D work up w/cad RT, [facility]. Tissue Density: The breasts are heterogeneously dense, which may obscure small masses. Findings: Analyzed By CAD. Right breast: There is no suspicious group of microcalcifications or new suspicious mass. Left breast: There is no suspicious group of microcalcifications or new suspicious mass. Patient reported left skink wrinkling not appreciated on mammogram. Overall Assessment: Negative, BI-RAD 1 Management: Screening Mammogram of both breasts in [address] [facility] will attempt to contact patient to return for supplemental views and ultrasound if indicated. Patient should continue monthly self-breast exams. A clinical breast exam by your physician is recommended on an annual basis. This exam should not preclude additional follow-up of suspicious palpable abnormalities. Note on Judy scores and lifetime risk: 1. A Judy score greater than 3% is considered moderate risk. If this is the case, consider specialist referral to assess eligibility for a risk reducing agent. 2. If overall lifetime risk for the development of breast cancer is 20% or higher, the patient may qualify for future screening with alternating mammogram and breast MRI. [facility], , 10/14/2024 2:11 PM. Electronically signed and approved by: Clarence Nelson DO
== END | disposition home or self-care (01) ==
LOC: RADMAMWWP 13:07
PROVIDERS: ATTEND Internal Medicine
DX: Z12.31 Encounter for screening mammogram for malignant neoplasm of breast (principal); R92.333 Mammographic heterogeneous density, bilateral breasts; Z78.0 Asymptomatic menopausal state; Z80.3 Family history of malignant neoplasm of breast; Z92.0 Personal history of contraception; Z90.722 Acquired absence of ovaries, bilateral
CPT/HCPCS: 77063; 77067